=== PATIENT | male | born 1940 | race Caucasian/White ===

== ENCOUNTER → 2017-11-06 | Day surgery (SDC) | payer MEDICARE ==
[~2017-11-06] MED LIST: LIDOCAINE 2% INJ 100 MG/5 ML SDV (FOR ANES.) As Ordered; PROPOFOL 200 MG/20 ML VIAL As Ordered
[2017-11-06] MEDS: NS 1,000 ML IV (10:07)
== END | disposition home or self-care (01) ==
LOC: M OPP 09:18
DX: Z12.11 Encounter for screening for malignant neoplasm of colon (principal); Z86.010 Personal history of colon polyps; Z80.0 Family history of malignant neoplasm of digestive organs; K64.0 First degree hemorrhoids; K57.30 Diverticulosis of large intestine without perforation or abscess without bleeding; Z98.0 Intestinal bypass and anastomosis status; I25.10 Atherosclerotic heart disease of native coronary artery without angina pectoris; Z95.5 Presence of coronary angioplasty implant and graft; Z87.891 Personal history of nicotine dependence; Z88.0 Allergy status to penicillin; Z79.82 Long term (current) use of aspirin; Z79.899 Other long term (current) drug therapy
CPT/HCPCS: G0105

== ENCOUNTER → 2019-07-15 | Outpatient (CLI) | payer MEDICARE ==
[~2019-07-15] MED LIST changes: +ASPI81TA26 PO; +FISH500C PO; +FLAX10008 PO; -LIDOCAINE 2% INJ 100 MG/5 ML SDV (FOR ANES.) As Ordered; +LINZ145C PO; +LIPI1TAB2 OR; +MULTTAB4 PO; +PRED20TA PO; -PROPOFOL 200 MG/20 ML VIAL As Ordered; +VICO5TAB PO; +VITA100067 PO; +VITABCTA OR; +ZOLP5TAB PO; +[UNRECOGNIZED DRUG - CODE] PO
--- NOTE | 2019-07-16 07:33 | REP ---
Two-view chest: 07/15/2019. Indication: Pneumothorax. Comparison: 11/28/2012. Findings: Postoperative sequelae are now noted status post median sternotomy. Slightly ectatic and atherosclerotic thoracic aorta is present. The lungs are clear. There is no pleural effusion or pneumothorax. The cardiac silhouette is not enlarged. Impression: No pneumothorax. New no acute cardiopulmonary process. Electronically Signed by Boubacar Brown DO 07/15/2019 03:27 P
== END ==
LOC: M WUC 15:00
PROVIDERS: ATTEND Physician Assistant
DX: J93.9 Pneumothorax, unspecified (principal)

== ENCOUNTER 2019-11-06 16:44 | Inpatient (IN) | payer MEDICARE ==
[~2019-11-06] VITALS: Ht 167.6 cm; Wt 65.1 kg
[2019-11-06] MEDS ORDERED: METO1TAB32 PO (17:04)
[2019-11-06 17:24] LABS: BASO # 0.1 10^3/uL (0.0-0.2); BASO % 0.9 % (0.0-1.0); EOS # 0.6 10^3/uL (0.0-0.5); EOS % 9.1 % (0.0-3.0); HEMATOCRIT 40.8 % (42.0-52.0); HEMOGLOBIN 13.1 g/dl (13.5-17.5); LYMPH % 30.8 % (24.0-44.0); MEAN CORPUSCULAR HEMOGLOBIN 29.6 pg (27.0-33.0); MEAN CORPUSCULAR HGB CONC 32.1 g/dl (32.0-36.5); MEAN CORPUSCULAR VOLUME 92.1 fl (80.0-96.0); MONO # 0.7 10^3/uL (0.0-0.8); MONO % 11.2 % (0.0-5.0); NEUTROPHILS % 47.7 % (36.0-66.0); PLATELET COUNT, AUTOMATED 284 10^3/uL (150-450); RED BLOOD COUNT 4.43 10^6/uL (4.30-6.10); WHITE BLOOD COUNT 6.4 10^3/uL (4.0-10.0)
--- NOTE | 2019-11-06 17:32 | REPVR ---
PROCEDURE INFORMATION: Exam: CT Head Without Contrast Exam date and time: 11/06/2019 5:12 PM Age: 79 years old Clinical indication: Altered mental status/memory loss TECHNIQUE: Imaging protocol: Computed tomography of the head without contrast. Radiation optimization: All CT scans at this facility use at least one of these dose optimization techniques: automated exposure control; mA and/or kV adjustment per patient size (includes targeted exams where dose is matched to clinical indication); or iterative reconstruction. COMPARISON: No relevant prior studies available. FINDINGS: Brain: There is no acute intracranial hemorrhage, cerebral edema, or midline shift. Minimal chronic microvascular ischemic changes are seen in the periventricular white matter. Age-related cerebral and cerebellar volume loss is present. Ventricles: No hydrocephalus. Bones/joints: No acute fracture. Sinuses: Moderate mucosal thickening is present in the paranasal sinuses. Mastoid air cells: Poor pneumatization of the right mastoid is likely due to remote/chronic inflammation. Orbits: The included orbital structures are unremarkable. Soft tissues: Unremarkable. Vasculature: Atherosclerotic calcifications are seen involving the cavernous carotid arteries. IMPRESSION: 1. No acute intracranial abnormality. 2. Atrophy and chronic deep white matter ischemic change. Electronically signed by: Senthil Oconnor On 11/06/2019 17:31:45 PM
[2019-11-06 17:54] LABS: BLOOD UREA NITROGEN 19 MG/DL (7-18); GLUCOSE, FASTING 92 MG/DL (70-100)
[2019-11-06 17:55] LABS: ALBUMIN 3.6 GM/DL (3.2-5.2); ALT/SGPT 26 U/L (12-78); BILIRUBIN,DIRECT 0.1 MG/DL (0.0-0.2); BILIRUBIN,TOTAL 0.4 MG/DL (0.2-1.0); CALCIUM LEVEL 8.7 MG/DL (8.8-10.2); CARBON DIOXIDE LEVEL 25 MEQ/L (21-32); CHLORIDE LEVEL 106 MEQ/L (98-107); CK-MB VALUE MASS < 1.0 NG/ML (<3.6); CPK CREATINE PHOSPHOKINASE 68 U/L (39-308); CREATININE FOR GFR 1.03 MG/DL (0.70-1.30); ETHYL ALCOHOL (ETHANOL) 0.015 % (0.000-0.010); GLOMERULAR FILTRATION RATE > 60.0 (>35); MB/CK RELATIVE INDEX 1.47 (< OR =4); POTASSIUM SERUM 4.3 MEQ/L (3.5-5.1); SODIUM LEVEL 139 MEQ/L (136-145); TOTAL PROTEIN 6.6 GM/DL (6.4-8.2); TROPONIN I < 0.02 NG/ML (< 0.10)
--- NOTE | 2019-11-06 17:58 | REP ---
HISTORY: Altered mental status. COMPARISON: A two view examination of 07/15/2019, the latest prior. The technique utilized in obtaining the radiograph has magnified the cardiac silhouette and accentuated the interstitial markings. The cardiomediastinal silhouette is unchanged. The cardiac silhouette is magnified by technique. Note is again made of previous median sternotomy. There are basilar fibrotic changes, status quo. There are no acute patchy parenchymal opacities or pleural effusions. There is no change in the osseous structures. IMPRESSION: No acute cardiopulmonary disease. Electronically Signed by Ziggy Granados DO 11/06/2019 06:49 P
[2019-11-06] MEDS ORDERED: VITAD1000T PO (18:47)
[2019-11-06] MEDS ORDERED: ZOLP10TA2 PO (18:47)
[2019-11-06] MEDS ORDERED: VITMTA PO (18:47)
[2019-11-06] MEDS ORDERED: FISH1000 PO (18:47)
[2019-11-06] MEDS ORDERED: HYDR-3363 PO (18:47)
--- NOTE | 2019-11-06 19:18 | HPEPDOC ---
[facility] Medical History & Physical Date of Admission Nov 06, 2019 Date of Service: Nov 06, 2019 Other Provider Navjot STEVENSON Attending Physician: DWIGHT VIEIRA MD History and Physical TIME OF SERVICE 840PM CHIEF COMPLAINT: finger numbness HISTORY OF PRESENT ILLNESS: This is an 79 yr old M who presents w c/o of new onset finger numbness that lasted for about 10 min while he was sitting down to drink a beer. He denies having numbness in any other part of his body, dropping any objects or falling. Passers by reported that he was unresponsive; the patient remembers the event and thinks that it may have lasted for 3-4 mins; thereafter his speech was a bit slurred. His speech has improved but he is not yet back to his baseline. He denies having f/c/dizziness or chest pain. He ate breakfast. 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 HOME MEDICATIONS: Please see below. Vital Signs Date Time Temp Pulse Resp B/P (MAP) Pulse Ox O2 Delivery O2 Flow Rate FiO2 11/06/19 16:54 98.0 64 20 181/84 (116) 100 Room Air PHYSICAL EXAMINATION: GENERAL APPEARANCE: well nourished/ well developed / NAD HEENT: NCAT CARDIOVASCULAR: RRR/NMRG LUNGS: CTAB on RA ABDOMEN: soft & NT on palpation MUSCULOSKELETAL: no LE edema NEUROLOGICAL: CN 2-12 grossly intact / verbal response slightly slow but not dysarthric PSYCHIATRIC: A&O LABORATORY DATA: Immature Granulocyte % (Auto) 0.3, Neutrophils (%) (Auto) 47.7, Lymphocytes (%) (Auto) 30.8, Monocytes (%) (Auto) 11.2H, Eosinophils (%) (Auto) 9.1H, Basophils (%) (Auto) 0.9, Neutrophils # (Auto) 3.0, Lymphocytes # (Auto) 2.0, Monocytes # (Auto) 0.7, Eosinophils # (Auto) 0.6H, Basophils # (Auto) 0.1, Nucleated Red Blood Cells % (auto) 0.0, Anion Gap 8, Glomerular Filtration Rate > 60.0, Calcium Level 8.7L, Total Bilirubin 0.4, Direct Bilirubin 0.1, Aspartate Amino Transf (AST/SGOT) 19, Alanine Aminotransferase (ALT/SGPT) 26, Alkaline Phosphatase 71, Total Creatine Kinase 68, Creatine Kinase MB < 1.0, Creatine Kinase MB Relative Index 1.47, Troponin I < 0.02, Total Protein 6.6, Albumin 3.6, Albumin/Globulin Ratio 1.20, Thyroid Stimulating Hormone (TSH) 1.750, Ethyl Alcohol Level 0.015H IMAGING: XRChest "IMPRESSION: No acute cardiopulmonary disease. CT HEAD "IMPRESSION: 1. No acute intracranial abnormality. 2. Atrophy and chronic deep white matter ischemic change. " MICROBIOLOGY: Please see below. ASSESSMENT: is an 79 yr old w a PMH of CAD s/p stents, CABG in Jun 2019 and Dyslipidemia PLAN: 1. Presyncope cause TBD. No evidence of CVA on CT head. - admit to medical floor / telemetry / IVF / orthostats / trend trops 2. Transient Hand Paresthesia cause TBD - f/u MRI brain and carotid US 3. Uncontrolled HTN - start amlodipine 2.5m daily / c/w metoprolol 4. Normocytic anemia - f/u stool occult and iron studies 5. Alcohol intoxication / abuse - CIWA protocol w thiamine, mvi, folic acid, ativan/ fall precautions / seizure precautions 6. CAD s/p stents / CABG in Jun 2019 / Dyslipidemia- resume home metoprolol & ASA & start atorvastatin DVT Px lovenox DISPO: likely home tomorrow LATE ENTRY #Acute CVA Per discussion with the radiologist on-call arrived the brain showed an acute infarct at the goldstein radiata with another infarct medial to this. Plan: he is already on telemetry /fall precautions / keep head of bed elevated to 30 degrees /aspiration precautions/ f/u lipid panel for ACVD risk score & A1C, TSH, f/u Echo / NPO pending swallow evaluation / PT/OT consult / c/w ASA, statin /Neurology consult / we will dc the metoprolol and amlodipine /permissive hypertension for 24 hours with target blood pressure less than 220/120/labetalol 5 mg IV when necessary for blood pressure greater than 220/120 / Post stroke target glycemic range between 140 and 180 /if the CVA is cryptogenic he will need referal to Cardio for an event monitor to r/o paroxysmal A.fib / we will upgrade him to in-patient status Home Medications Scheduled Aspirin (Aspirin EC) 81 Mg Tab, 81 MG PO QHS Cholecalciferol (Vitamin D3) (Vitamin D3) 1,000 Unit Tablet, 1,000 UNITS PO DAILY Metoprolol Succinate (Metoprolol Succinate) 25 Mg Tab.er.24h, 25 MG PO DAILY Multivitamins (Thera M Plus Tablet) 1 Each Tablet, 1 TAB PO DAILY Camak-3 Fatty Acids/Fish Oil (Fish Oil 1,000 mg Capsule) 1 Each Capsule, 1,000 MG PO DAILY Scheduled PRN Hydroxyzine HCl (Hydroxyzine HCl) 25 Mg Tablet, 25 MG PO TID PRN for ITCHING Linaclotide (Linzess) 145 Mcg Cap, 145 MCG PO DAILY PRN for CONSTIPATION Zolpidem Tartrate (Zolpidem Tartrate) 10 Mg Tablet, 10 MG PO QHS PRN for SLEEP Allergies Coded Allergies: Animal Dander (Verified Allergy, Unknown, 10/30/17) Penicillins (Verified Allergy, Unknown, 11/06/19) A-FIB/CHADSVASC A-FIB History Current/History of A-Fib/PAF?: No Current PO Anticoag Therapy: No DWIGHT VIEIRA MD Nov 06, 2019 19:18
[2019-11-06] MEDS ORDERED: MOM 30ML SUSPENSION UDC PO PRN (19:45)
[2019-11-06] MEDS ORDERED: MAALOX 30 ML SUSP *UDC PO PRN (19:45)
[2019-11-06] MEDS ORDERED: ONDANSETRON 4 MG TAB (S0181) PO PRN (19:45)
[2019-11-06] MEDS ORDERED: LORazepam 2 MG TAB PO PRN (19:45)
[2019-11-06] MEDS ORDERED: ACETAMINOPHEN TAB 650MG DOSE (2X325MG) PO PRN (19:45)
--- NOTE | 2019-11-06 19:46 | ECGEPIP ---
[facility] - ED Test Date: 2019-11-06 Pat Name: RAMY ACOSTA Department: Room: - Gender: Male Systems Engineer: yari : [id number] Requested By: PRUDENCIO LEWIS Order Number: [id number] Reading MD: Ethan Andrew Measurements Intervals Stearns Rate: 59 P: 37 VA: 168 QRS: -10 QRSD: 125 T: 23 QT: 432 QTc: 430 Interpretive Statements SINUS BRADYCARDIA MODERATE INTRAVENTRICULAR CONDUCTION DELAY NSTTW ABNORMALITIES NO PRIORS FOR COMPARISON Electronically Signed on 11-06-2019 19:46:03 EDT by Ethan Andrew
[2019-11-06] MEDS ORDERED: NS 1,000 ML IV SCH ×2 (20:00→23:05)
[2019-11-06 20:12] LABS: FERRITIN 52 NG/ML (26-388); IRON (FE) 82 UG/DL (65-175); PERCENT SATURATION 24.3 % (19.7-50.0); TOTAL IRON BINDING CAPACITY 337 UG/DL (250-450)
[2019-11-06] MEDS ORDERED: zolPIDEM TARTRATE 5 MG TAB PO PRN (21:00)
[2019-11-06] MEDS ORDERED: ASPIRIN 81 MG ENTERIC TAB PO SCH (21:00)
--- NOTE | 2019-11-06 21:57 | REPVR ---
PROCEDURE INFORMATION: Exam: US Duplex Bilateral Extracranial Arteries Exam date and time: 11/06/2019 9:29 PM Age: 79 years old Clinical indication: Syncope and collapse; Additional info: Presyncope and hand paresthesia TECHNIQUE: Imaging protocol: Real-time Duplex ultrasound scan of the bilateral carotid and vertebral arteries combining bah scale, color Doppler and spectral waveform analysis. Bilateral exam. COMPARISON: CT Head without contrast 11/06/2019 5:10 PM FINDINGS: Right side: There is moderate atherosclerotic plaque formation right carotid bifurcation. The right ICA/CCA ratio is 0.7 with a peak velocity of the right internal carotid artery of 82 cm/sec. There is no significant stenosis right internal carotid artery and the amount of narrowing would be less than 50%. The right vertebral artery cannot be identified and may be occluded. Left side: There is moderate irregular atherosclerotic plaque formation left carotid bifurcation. The left ICA/CCA ratio is 0.9 with a peak velocity of the left internal carotid artery of 80 cm/sec. There is no significant stenosis of the left internal carotid artery and the amount of narrowing would be less than 50%. The left vertebral artery is antegrade. IMPRESSION: 1. Moderate irregular atherosclerotic plaque formation throughout the right and left carotid bifurcation. No significant stenosis at this time. 2. The right vertebral artery is not identified and could be occluded. REFERENCES: Carotid Stenosis Reference using SRU criteria: Mild: less than 50% stenosis. ICA PSV is less than 125 cm/second and plaque or intimal thickening is visible. Moderate: 50-69% stenosis. ICA PSV is 125 to 230 cm/second and plaque is visible. Severe: 70-94% stenosis. ICA PSV is more than 230 cm/second and visible plaque and lumen narrowing are seen. Near occlusion: 95-99% stenosis. ICA PSV is variable and significant plaque and luminal narrowing are seen. Occluded: 100% stenosis. No flow identified. Electronically signed by: Alfredo Boswell On 11/06/2019 21:56:27 PM
--- NOTE | 2019-11-06 22:40 | REPVR ---
PROCEDURE INFORMATION: Exam: MR Head Without Contrast Exam date and time: 11/06/2019 8:57 PM Age: 79 years old Clinical indication: Weakness, extremity; Bilateral; Additional info: Presyncope and hand paresthesias in 79 yr old w cad/cabg TECHNIQUE: Imaging protocol: MR of the head without contrast. COMPARISON: CT Head without contrast 11/06/2019 5:10 PM FINDINGS: Brain: There is hyperintense signal in the periventricular white matter consistent with chronic microvascular disease. DWI images 18 and 19 demonstrate an infarct extending from the left putamen into the left goldstein radiata and body of the caudate nucleus. This measures 2 cm in length and 0.8 cm in width. This is an acute infarct, confirmed on ADC. Medial to this on image 18 there is a smaller, 8 mm long, acute infarct in the body of the left caudate nucleus. There is no hemorrhage on gradient echo images. There is no extra-axial collection. There is no mass. Ventricles: Normal. No ventriculomegaly. Bones/joints: Unremarkable. Soft tissues: Unremarkable. Sinuses: Moderate mucosal is present within the sinuses. Mastoid air cells: Normal as visualized. No mastoid effusion. Orbits: Unremarkable. Other vasculature: There are no abnormal flow voids. IMPRESSION: 1. There is chronic microvascular disease. 2. There is a 20 by 8 mm acute infarct in the goldstein radiata. Medial to this there is an 8 by 3 mm acute infarct. Electronically signed by: Brian Wadsworth On 11/06/2019 22:40:10 PM
[2019-11-06] MEDS ORDERED: LABETALOL HCL 100 MG/20 ML VIAL IV PRN (23:15)
[2019-11-06 23:45] LABS: HEMOGLOBIN A1c 6.2 %
[2019-11-07] VITALS (8 sets, daily range): BP systolic 136–180; BP diastolic 68–88
[2019-11-07 00:13] LABS: CHOLESTEROL RISK RATIO 2.725 (<5); THYROID STIMULATING HORMONE 1.65 uIU/ML (0.358-3.740)
[2019-11-07] MEDS: THIAMINE 100 MG TAB PO SCH ×3 (00:22→20:49)
[2019-11-07] MEDS: ATORVASTATIN 20 MG TAB PO SCH ×2 (00:22→20:49)
[2019-11-07] MEDS: DOCUSATE SODIUM 100 MG CAP PO SCH ×3 (00:22→20:49)
[2019-11-07 05:24] LABS: HEMATOCRIT 41.1 % (42.0-52.0); HEMOGLOBIN 13.6 g/dl (13.5-17.5); MEAN CORPUSCULAR HEMOGLOBIN 30.2 pg (27.0-33.0); MEAN CORPUSCULAR HGB CONC 33.1 g/dl (32.0-36.5); MEAN CORPUSCULAR VOLUME 91.1 fl (80.0-96.0); PLATELET COUNT, AUTOMATED 277 10^3/uL (150-450); RED BLOOD COUNT 4.51 10^6/uL (4.30-6.10); WHITE BLOOD COUNT 6.6 10^3/uL (4.0-10.0)
[2019-11-07 05:54] LABS: BLOOD UREA NITROGEN 18 MG/DL (7-18); CALCIUM LEVEL 8.4 MG/DL (8.8-10.2); CARBON DIOXIDE LEVEL 26 MEQ/L (21-32); CHLORIDE LEVEL 111 MEQ/L (98-107); CREATININE FOR GFR 0.99 MG/DL (0.70-1.30); GLOMERULAR FILTRATION RATE > 60.0 (>35); GLUCOSE, FASTING 106 MG/DL (70-100); POTASSIUM SERUM 4.1 MEQ/L (3.5-5.1); SODIUM LEVEL 141 MEQ/L (136-145); TROPONIN I < 0.02 NG/ML (< 0.10)
[2019-11-07] MEDS ORDERED: D5W/0.45% SODIUM CHLORIDE 1,000 ML IV SCH (09:00)
[2019-11-07] MEDS ORDERED: LINZESS PO SCH (09:00)
[2019-11-07] MEDS: MULTIVITAMINS/MINERALS THERAP 1 TAB PO SCH (09:00)
[2019-11-07] MEDS: OMEGA-3 1000MG CAPSULE PO SCH (09:00)
[2019-11-07] MEDS: FOLIC ACID 1 MG TAB PO SCH (09:00)
[2019-11-07] MEDS ORDERED: METOPROLOL SUCC *XL* 25MG TAB (TopROL *XL*) PO SCH (09:00)
[2019-11-07] MEDS: ENOXAPARIN 40 MG/0.4 ML SYRINGE (J1650) SC SCH (09:13)
[2019-11-07] MEDS ORDERED: ASPIRIN 81 MG ENTERIC TAB PO ONE (10:00)
--- NOTE | 2019-11-07 11:19 | IPNPDOC ---
Date Seen The patient was seen on 11/07/19. Progress Note SUBJECTIVE: Patient was seen and examined this morning. The patient states that last night he had developed right sided pointer finger numbness extending partially into his hand. This was sudden onset. He denies every having any weakness. It was reported in his HPI that he was observed to be unresponsive at one point before being transported to the ER. Currently he states he has some numbness in his right hand. He also states that he feels like he knows what he wants to say however is having difficulty articulating his speech. He denies any difficulty swallowing. He denies any abdominal pain, nausea, vomiting. He denies any headaches. OBJECTIVE PHYSICAL EXAMINATION: VITAL SIGNS: Please see below. GENERAL: Awake, alert, and oriented. Appears in no acute distress. Lying comfortably in bed. HEENT: Atraumatic, normocephalic. Eyes are nonicteric. Trachea is midline. CARDIOVASCULAR: Normal S1, S2. Regular rate and rhythm. No clicks, rubs, or murmurs RESPIRATORY: Clear vesicular breath sounds bilateral with good respiratory effort. No wheezes, rhonchi, or rales ABDOMINAL: Soft, nondistended. Nontender. No rebound tenderness or guarding. Normoactive bowel sounds throughout EXTREMITIES: No edema. Full and equal pulses in bilateral upper and lower extremities NEUROLOGICAL: CN II-XII grossly intact. Dysarthria. 5/5 muscle strength testing in bilateral upper and lower extremities. Sensation intact. PSYCHOLOGICAL: Mood and affect appear appropriate LABORATORY DATA, IMAGING STUDIES, MICROBIOLOGY: Please see below. Echocardiogram: Pending DVT prophylaxis ordered?: Lovenox ASSESSMENT AND PLAN: Patient is an 79 year old male who presented to the [facility] ER with complaint of sudden onset right hand numbness and dysarthria. At presentation to the ER the patient received an MRI of the head which demonstrated a 20mm x 8 mm acute infarct in the goldstein radiata and a medial 8 x 3 mm infarct PROBLEMS: 1. Acute CVA -Imaging demonstrating a subcortical white matter infarct involving the goldstein radiata. Patient is currently presenting with some right hand numbness and dysarthria. He has received 81mg PO aspirin however he takes this dose at home. Patient will be given additional 263mg of aspirin for a total dose of 325. -Case was discussed with on-call neurologist with recommendations to continue 325mg Aspirin daily and Statin. Consultation is appreciated -Patient will remain on atorvastatin. -Continue with Permissive Hypertension for at least 48 hours per Neurology Recommendations -MRA of brain w/o contrast ordered -MRA carotids ordered -Echocardiogram pending -HbA1C of 6.2 -LDL of 66 -Patient has a history of ASCVD. Unclear why he was not taking a high intensity statin given history of ASCVD. Will continue Atorvastatin -Speech Eval. -PT/OT eval -Patient is currently NPO 2. Coronary Artery Disease -Patient is s/p stenting and CABG in Jun 2019. -Patient was not taking high intensity statin at home. He has been started on Atorvastatin. -Will hold Metoprolol. 3. Alcohol Use -Patient was reportedly drinking at the time of his CVA. Unclear whether the patient has a history of alcohol abuse. Patient is continued on CIWA protocol 4. DVT Prophylaxis -Lovenox DISPOSITION: . VS, I&O, 24H, Fishbone Vital Signs/I&O Vital Signs Date Time Temp Pulse Resp B/P (MAP) Pulse Ox O2 Delivery O2 Flow Rate FiO2 11/07/19 08:00 98.3 62 18 140/68 (92) 97 Room Air I&O- Last 24 Hours up to 6 AM 11/07/19 06:00 Intake Total 360 ml Output Total 425 ml Balance -65 ml Laboratory Data 24H LABS Laboratory Tests 2 11/06/19 17:12: Immature Granulocyte % (Auto) 0.3, Neutrophils (%) (Auto) 47.7, Lymphocytes (%) (Auto) 30.8, Monocytes (%) (Auto) 11.2H, Eosinophils (%) (Auto) 9.1H, Basophils (%) (Auto) 0.9, Neutrophils # (Auto) 3.0, Lymphocytes # (Auto) 2.0, Monocytes # (Auto) 0.7, Eosinophils # (Auto) 0.6H, Basophils # (Auto) 0.1, Nucleated Red Blood Cells % (auto) 0.0, Anion Gap 8, Glomerular Filtration Rate > 60.0, Calcium Level 8.7L, Iron Level 82, Total Iron Binding Capacity 337, Transferrin % Saturation 24.3, Ferritin 52, Total Bilirubin 0.4, Direct Bilirubin 0.1, Aspar fall Amino Transf (AST/SGOT) 19, Alanine Aminotransferase (ALT/SGPT) 26, Alkaline Phosphatase 71, Total Creatine Kinase 68, Creatine Kinase MB < 1.0, Creatine Kinase MB Relative Index 1.47, Troponin I < 0.02, Total Protein 6.6, Albumin 3.6, Albumin/Globulin Ratio 1.20, Thyroid Stimulating Hormone (TSH) 1.750, Ethyl Alcohol Level 0.015H 11/06/19 23:23: Troponin I < 0.02, Thyroid Stimulating Hormone (TSH) 1.650, Estimated Mean Plasma Glucose 131H, Hemoglobin A1c 6.2, Triglycerides Level 110, Total Cholesterol 139, LDL Cholesterol 66, Non-HDL Cholesterol (LDL + VLDL) 88, Total HDL Cholesterol 51, Cholesterol/HDL Ratio 2.725 11/07/19 00:30: Bedside Glucose (Misc Panel) 95 11/07/19 05:06: Nucleated Red Blood Cells % (auto) 0.0, Anion Gap 4L, Glomerular Filtration Rate > 60.0, Calcium Level 8.4L, Troponin I < 0.02, Magnesium Level 2.0 CBC/BMP Laboratory Tests 11/06/19 17:12 11/07/19 05:06 FRIEDA KHAN DO Nov 07, 2019 11:19
[2019-11-07] MEDS ORDERED: D5W/0.9% SODIUM CHLORIDE 1,000 ML IV SCH (12:15)
[2019-11-07 12:53] LABS: BLOOD UREA NITROGEN 20 MG/DL (7-18); CALCIUM LEVEL 8.3 MG/DL (8.8-10.2); CARBON DIOXIDE LEVEL 27 MEQ/L (21-32); CHLORIDE LEVEL 111 MEQ/L (98-107); GLOMERULAR FILTRATION RATE > 60.0 (>35); GLUCOSE, FASTING 122 MG/DL (70-100); POTASSIUM SERUM 3.9 MEQ/L (3.5-5.1); SODIUM LEVEL 141 MEQ/L (136-145)
[2019-11-07] MEDS: D5W/0.45% SODIUM CHLORIDE 1,000 ML IV SCH ×2 (13:23→20:15)
[2019-11-07] MEDS ORDERED: PROHANCE 279.3MG/ML 5ML VIAL (A9576) As Ordered ONE (14:25)
[2019-11-07] MEDS ORDERED: PROHANCE 279.3MG/ML 15ML VIAL (A9576) As Ordered ONE (14:26)
--- NOTE | 2019-11-07 14:30 | ECHO ---
DATE OF STUDY: 11/07/2019 HEIGHT: 158 cm WEIGHT: 69 kg REFERRING PHYSICIAN: Dr. Ingrid Patel INDICATION: Acute stroke (cerebral). 2-D MEASUREMENTS: Ventricular septum: 1.07 cm Posterior wall: 1.11 cm Left ventricle diastole: 4.1 cm Left ventricle systole: 3.0 cm Aortic root: 3.2 cm Left atrium: 3.1 cm Inferior vena cava: 1.2 cm DOPPLER MEASUREMENTS: Very mild aortic regurgitation No mitral regurgitation No tricuspid regurgitation No pulmonic regurgitation Aortic valve velocity: 107 cm/sec LVOT velocity: 66.6 cm/sec Mitral E velocity: 50.1 cm/sec Mitral A velocity: 66.8 cm/sec Mitral deceleration time: 299 ms Pulmonary acceleration time: 109 ms MITRAL ANNULAR TISSUE DOPPLER: E prime septal: 5.1 cm/sec E prime lateral: 7.9 cm/sec DESCRIPTION: The rhythm was sinus with appearance of left bundle branch block morphology. No pericardial effusion. This was a moderately technically difficult echocardiogram. This was a 2-D, M-mode, color flow Doppler and pulse wave Doppler examination and included mitral annular tissue Doppler. CONCLUSIONS: 1. Paradoxical septal motion with normal regional LV wall motion and wall thickening elsewhere. Normal left ventricle internal dimensions and wall thickness. Normal overall LV systolic function. LVEF 65% by visual estimate. Grade 1 LV diastolic dysfunction. 2. Mild mitral annular calcification. No mitral regurgitation. 3. Mild aortic valve sclerosis with a 3-cuspid aortic valve. Very mild aortic regurgitation. 4. Moderately technically difficult echocardiogram. 5. Otherwise normal appearing echocardiogram Doppler findings.
--- NOTE | 2019-11-07 15:55 | REPVR ---
PROCEDURE INFORMATION: Exam: MR Angiography Neck Without and With Contrast Exam date and time: 11/07/2019 3:17 PM Age: 79 years old Clinical indication: Condition or disease; Cerebrovascular disease and infarction; Patient HX: Known CVA found on non con mri brain on pacs, symptoms have subsided; Additional info: Subcortical white matter stroke TECHNIQUE: Imaging protocol: Magnetic resonance angiography of the neck without and with intravenous contrast. 3D rendering: MIP and/or 3D reconstructed images were created by the technologist. Contrast material: PROHANCE; Contrast volume: 25 ml; Contrast route: 22G; COMPARISON: MRA BRAIN W/O CONTRAST 11/07/2019 2:36 PM, Carotid duplex ultrasound of the neck 11/05/2028 7:00 p.m. FINDINGS: Limitations: Patient motion. Right common carotid artery: No stenosis. No dissection or occlusion. Right internal carotid artery: No stenosis of the extracranial segment. No dissection or occlusion. Right external carotid artery: No stenosis. No dissection or occlusion of the origin. Right vertebral artery: Minimal flow is detected in the right vertebral artery throughout its course V1 through proximal V3 segments. And the V4 segment appears patent on the 3D/MIP images. Left common carotid artery: No stenosis. No dissection or occlusion. Left internal carotid artery: No stenosis of the extracranial segment. No dissection or occlusion. Left external carotid artery: No stenosis. No dissection or occlusion of the origin. Left vertebral artery: Left vertebral artery is dominant. IMPRESSION: No significant stenosis in the internal carotid arteries although there are contour abnormalities of both carotid bulbs images are limited due to patient motion. There is flow in a small right vertebral artery from its origin through the V4 segment. COMMENTS: Using NASCET method for measuring degree of carotid artery stenosis: Mild is less than 50% stenosis. Moderate is 50-69% stenosis. Severe is 70-94% stenosis. Near occlusion is 95-99% stenosis. Electronically signed by: Gemma Caldera On 11/07/2019 15:54:49 PM
--- NOTE | 2019-11-07 16:01 | REPVR ---
PROCEDURE INFORMATION: Exam: MR Angiogram Head Without Contrast, Arteries Exam date and time: 11/07/2019 3:17 PM Age: 79 years old Clinical indication: Condition or disease; Cerebrovascular disease and infarction; Patient HX: Known CVA found on non con mri brain on pacs, symptoms have subsided; Additional info: Subcortical white matter stroke TECHNIQUE: Imaging protocol: MR angiogram head without contrast. Exam focused on the arteries. 3D rendering: MIP and/or 3D reconstructed images were created by the technologist. COMPARISON: MRI-Brain without Contrast 11/06/2019 9:38 PM FINDINGS: Right internal carotid artery: Intracranial segment is patent with no significant stenosis. No aneurysm. Right anterior cerebral artery: No occlusion or significant stenosis. No aneurysm. Right middle cerebral artery: Minimal flow is detected in the right V4 segment. Right posterior cerebral artery: No occlusion or significant stenosis. No aneurysm. Right vertebral artery: No occlusion or significant stenosis. No aneurysm. Left internal carotid artery: Intracranial segment is patent with no significant stenosis. No aneurysm. Left anterior cerebral artery: No occlusion or significant stenosis. No aneurysm. Left middle cerebral artery: No occlusion or significant stenosis. No aneurysm. Left posterior cerebral artery: No occlusion or significant stenosis. No aneurysm. Left vertebral artery: The basilar artery is primarily constituted from the left vertebral artery. Basilar artery: No occlusion or significant stenosis. No aneurysm. IMPRESSION: No acute arterial occlusions. Minimal flow is seen in the right vertebral artery which may be congenital among other etiologies. Electronically signed by: Gemma Caldera On 11/07/2019 16:01:14 PM
[2019-11-07 19:09] LABS: BLOOD UREA NITROGEN 19 MG/DL (7-18); CALCIUM LEVEL 8.5 MG/DL (8.8-10.2); CARBON DIOXIDE LEVEL 26 MEQ/L (21-32); CHLORIDE LEVEL 109 MEQ/L (98-107); CREATININE FOR GFR 1.01 MG/DL (0.70-1.30); GLOMERULAR FILTRATION RATE > 60.0 (>35); GLUCOSE, FASTING 102 MG/DL (70-100); POTASSIUM SERUM 4.1 MEQ/L (3.5-5.1); SODIUM LEVEL 141 MEQ/L (136-145)
[2019-11-08] VITALS (8 sets, daily range): BP systolic 119–152; BP diastolic 67–81
[2019-11-08 00:58] LABS: BLOOD UREA NITROGEN 18 MG/DL (7-18); CALCIUM LEVEL 8.3 MG/DL (8.8-10.2); CARBON DIOXIDE LEVEL 27 MEQ/L (21-32); CHLORIDE LEVEL 110 MEQ/L (98-107); CREATININE FOR GFR 0.98 MG/DL (0.70-1.30); GLOMERULAR FILTRATION RATE > 60.0 (>35); GLUCOSE, FASTING 108 MG/DL (70-100); POTASSIUM SERUM 4.1 MEQ/L (3.5-5.1); SODIUM LEVEL 140 MEQ/L (136-145)
[2019-11-08 06:47] LABS: BLOOD UREA NITROGEN 16 MG/DL (7-18); CALCIUM LEVEL 8.7 MG/DL (8.8-10.2); CARBON DIOXIDE LEVEL 25 MEQ/L (21-32); CHLORIDE LEVEL 111 MEQ/L (98-107); CREATININE FOR GFR 0.91 MG/DL (0.70-1.30); GLOMERULAR FILTRATION RATE > 60.0 (>35); GLUCOSE, FASTING 102 MG/DL (70-100); POTASSIUM SERUM 3.8 MEQ/L (3.5-5.1); SODIUM LEVEL 139 MEQ/L (136-145)
[2019-11-08] MEDS: D5W/0.45% SODIUM CHLORIDE 1,000 ML IV SCH (08:42)
[2019-11-08] MEDS: ASPIRIN 300 MG SUPP PR SCH (08:42)
[2019-11-08] MEDS: ENOXAPARIN 40 MG/0.4 ML SYRINGE (J1650) SC SCH (08:42)
[2019-11-08] MEDS ORDERED: ASPIRIN ENTERIC 325 MG TAB PO SCH (09:00)
[2019-11-08] MEDS: FOLIC ACID 1 MG TAB PO SCH (09:30)
[2019-11-08] MEDS: MULTIVITAMINS/MINERALS THERAP 1 TAB PO SCH (09:30)
[2019-11-08] MEDS: THIAMINE 100 MG TAB PO SCH ×2 (09:30→20:10)
[2019-11-08] MEDS: DOCUSATE SODIUM 100 MG CAP PO SCH ×2 (09:30→20:10)
[2019-11-08] MEDS: OMEGA-3 1000MG CAPSULE PO SCH (09:30)
[2019-11-08 12:43] LABS: BLOOD UREA NITROGEN 16 MG/DL (7-18); CALCIUM LEVEL 8.7 MG/DL (8.8-10.2); CARBON DIOXIDE LEVEL 26 MEQ/L (21-32); CHLORIDE LEVEL 109 MEQ/L (98-107); GLOMERULAR FILTRATION RATE > 60.0 (>35); GLUCOSE, FASTING 77 MG/DL (70-100); POTASSIUM SERUM 3.6 MEQ/L (3.5-5.1); SODIUM LEVEL 139 MEQ/L (136-145)
[2019-11-08] MEDS ORDERED: MIRALAX *UNIT DOSE* 17GM PACKET PO PRN (15:15)
--- NOTE | 2019-11-08 15:25 | IPNPDOC ---
Text Note Date of Service The patient was seen on 11/08/19. NOTE Subjective: Patient stated that his swallowing markedly improved, he is able to eat and drink w/o shock and cough Objective: VITAL SIGNS: Please see below. GENERAL APPEARANCE: Well-nourished, well-developed, not in apparent distress HEENT: Normocephalic, atraumatic. Mucous members moist and pink CARDIOVASCULAR: Regular rate and rhythm. No murmurs, rubs or gallops. Radial p ulses are intact. There is no lower extremity edema LUNGS: Diminished lung sounds ABDOMEN: Abdomen is soft and nontender. MUSCULOSKELETAL: Range of motion is intact in all 4 extremities NEUROLOGICAL: Left facial droop, 7 cranial nerve deficiency, speech mildly dysarthric, moves 4 limbs Assessment and plan Patient is 79 years old male with past medical history of coronary artery diseases presented to the hospital with left facial droop and dysarthria. Patient was found to have an acute infarct in the left goldstein radiata. Acute CVA Patient was diagnosed with acute infarct in the left goldstein radiata Neurologist team recommended aspirin 325 mg daily, continue statin PT/OT evaluation MRA brain did not show significant abnormalities MRA carotids negative for significant stenosis Await speech evaluation bedside swallowing test was negative for cough and choking. Soft mechanical diet Telemetry showed sinus rhythm Echo showed LVEF 65% by visual estimate. Grade 1 LV diastolic dysfunction. Coronary artery diseases Status post CABG in June 2019 Continue statin, aspirin, metoprolol EtOH abuse [facility] protocol VS,Fishbone, I+O VS, Fishbone, I+O Laboratory Tests 11/07/19 18:13 11/08/19 00:13 11/08/19 05:40 11/08/19 11:48 Vital Signs Date Time Temp Pulse Resp B/P (MAP) Pulse Ox O2 Delivery O2 Flow Rate FiO2 11/08/19 11:57 97.7 82 18 147/81 (103) 93 Room Air I&O- Last 24 Hours up to 6 AM 11/08/19 06:00 Intake Total 1700 ml Output Total 500 ml Balance 1200 ml GRETA NERI DO Nov 08, 2019 15:25
[2019-11-08] MEDS: METOPROLOL TART 12.5 MG PER 1/2 TAB PO SCH (20:09)
[2019-11-08] MEDS: ATORVASTATIN 20 MG TAB PO SCH (20:11)
[2019-11-09] VITALS (7 sets, daily range): BP systolic 124–151; BP diastolic 67–80
[2019-11-09 05:38] LABS: HEMOGLOBIN 13.4 g/dl (13.5-17.5); MEAN CORPUSCULAR HEMOGLOBIN 30.5 pg (27.0-33.0); MEAN CORPUSCULAR HGB CONC 33.5 g/dl (32.0-36.5); MEAN CORPUSCULAR VOLUME 91.1 fl (80.0-96.0); PLATELET COUNT, AUTOMATED 277 10^3/uL (150-450); RED BLOOD COUNT 4.39 10^6/uL (4.30-6.10); WHITE BLOOD COUNT 6.9 10^3/uL (4.0-10.0)
[2019-11-09] MEDS: FOLIC ACID 1 MG TAB PO SCH (08:33)
[2019-11-09] MEDS: OMEGA-3 1000MG CAPSULE PO SCH (08:33)
[2019-11-09] MEDS: DOCUSATE SODIUM 100 MG CAP PO SCH ×2 (08:33→20:41)
[2019-11-09] MEDS: ENOXAPARIN 40 MG/0.4 ML SYRINGE (J1650) SC SCH (08:33)
[2019-11-09] MEDS: METOPROLOL TART 12.5 MG PER 1/2 TAB PO SCH ×2 (08:33→20:41)
[2019-11-09] MEDS: MULTIVITAMINS/MINERALS THERAP 1 TAB PO SCH (08:33)
[2019-11-09] MEDS: THIAMINE 100 MG TAB PO SCH (08:33)
[2019-11-09] MEDS: ASPIRIN 300 MG SUPP PR SCH (08:34)
--- NOTE | 2019-11-09 09:00 | CR ---
DATE OF CONSULTATION: 11/07/2019 HISTORY OF PRESENTING ILLNESS: Dominik Motta is an 79-year-old male with a past medical history significant for alcohol use, history of coronary artery disease status post stents, coronary artery bypass graft (CABG) in June 2019, dyslipidemia. The patient presented with right hand clumsiness. The patient noticed that he was experiencing about 10 minutes of finger numbness. He may have even had an episode of unresponsiveness. The patient's symptoms resolved by the time he came to the emergency department. Later, in the admission, his symptoms worsened with dysarthria. Head CT was initially negative. MRI of the brain revealed acute stroke of the left goldstein radiata into the cardia nucleus. The patient was taking 81 mg aspirin at home and was given 325 mg of aspirin. The patient does have a formal swallow study coming up though he is tolerating mechanical soft foods well. He initially reported that he had tingling, paresthesias of both hands, he states. At present time, he has some residual right leg weakness but states that his arm strength/hand strength has improved. He continues to have dysarthria. He denies any headache, chest pain, shortness breath. 14-point review of systems obtained and is negative except as per history of presenting illness (HPI). PAST MEDICAL HISTORY: 1. Coronary artery disease status post stents. 2. CABG June 2019. 3. Dyslipidemia. 4. Resection of high-grade rectal colon. 5. Dysplasia. 6. Umbilical hernia. SOCIAL HISTORY: The patient denies use of tobacco or illicit drugs. Drinks two beers per day. FAMILY HISTORY: Noncontributory. ALLERGIES: PENICILLIN, ANIMAL DANDER. HOME MEDICATIONS: - aspirin 81 mg - metoprolol succinate 25 mg - multivitamin daily - [place]-3 fish oil 1000 mg daily - cholecalciferol 1000 international units daily - hydroxyzine 25 mg p.r.n. - Linzess p.r.n. constipation - zolpidem 10 mg daily by mouth nightly insomnia LAB WORK: TSH 1.750. Hemoglobin A1c 6.2. Triglycerides 110. Cholesterol 139. LDL 53. HDL 51. Ethyl alcohol on admission 0.015. MRI evidence of 20 x 8 mm left goldstein radiata acute stroke into the left caudate nucleus measuring 8 x 3 mm. PHYSICAL EXAMINATION: Blood pressure is 147/81, pulse rate 82, respiratory rate is 18, temperature is 97.7 degrees Fahrenheit, oxygenation is 92% on room air. The patient is awake, alert, oriented to person, place and time. Speech, language, comprehension, and repetition are intact. Pupils are 2.5 mm round, reactive to light. Extraocular muscles intact are intact in all directions without nystagmus. Sensation V1, V2, V3 is intact to light touch. No facial asymmetry on activation. Speech is dysarthric. There is mild expressive aphasia. Tongue is midline. Palate elevates symmetrically. There does not appear to be any pronator drift. [id number] appears to be intact without any gross ataxia or dysmetria. Strength is 5/5 in the deltoid, biceps, triceps. Handgrip are 5-. Iliopsoas on the right is at 4+, on the left it is a 5. Quadriceps are 5/5, tibialis anterior are 5/5. Sensory is intact to light touch in all four extremities. Gait deferred. ASSESSMENT: 79-year-old male with transient right hand weakness, numbness improved with residual dysarthria and mild expressive aphasia. MRI evidence of left goldstein radiata and coronary nucleus ischemic stroke. PLAN: Agree with increased aspirin to 325 mg daily. Lipid profile was excellent. Recommend reducing Lipitor to 20 mg daily. MR angiogram of the head and carotids did not reveal any high-grade intracranial stenosis. Physical therapy (PT), occupational therapy (OT) evaluation. Echocardiogram does not reveal cardiac source of stroke. No evidence of atrial fibrillation on telemetry, and history obtained from both the patient and the patient's son, Gatito. Recommend outpatient neurology followup in 6-8 weeks.
[2019-11-09] MEDS ORDERED: VARIBAR PUDDING 40% w/v 230ML TUBE As Ordered ONE (09:14)
[2019-11-09] MEDS ORDERED: E-Z-PAQUE 96% w/w SUSP 176GM BTL As Ordered ONE (09:15)
[2019-11-09] MEDS ORDERED: BARIUM SULFATE 700 MG TABLET (E-Z-DISK) As Ordered ONE (09:15)
[2019-11-09] MEDS ORDERED: VARIBAR NECTAR 40% w/v 240ML SUSP BTL As Ordered ONE (09:15)
--- NOTE | 2019-11-09 13:56 | IPNPDOC ---
Date Seen The patient was seen on 11/09/19. Progress Note SUBJECTIVE: Patient was seen and examined this morning. There have been no adverse events reported overnight. Patient currently denies any weakness. He states that he feels his speech has improved. He denies any numbness in his right hand. He states that his strength is at his baseline. OBJECTIVE PHYSICAL EXAMINATION: VITAL SIGNS: Please see below. GENERAL: Awake, alert, and oriented. Appears in no acute distress. Sitting up comfortably on side of bed. HEENT: Atraumatic, normocephalic. Eyes are nonicteric. Trachea is midline. CARDIOVASCULAR: Normal S1, S2. Regular rate and rhythm. No clicks, rubs, or murmurs/ RESPIRATORY: Clear vesicular breath sounds bilaterally with good respiratory effort. No wheezes, rhonchi, or rales ABDOMINAL: Soft, nondistended. Nontender. No rebound tenderness or guarding. Normoactive bowel sounds throughout EXTREMITIES: No edema. Full and equal pulses in bilateral upper and lower extremities NEUROLOGICAL: CN II-XII grossly intact. Patients dysarthria has improved. 5/5 muscle strength testing in bilateral upper and lower extremities. Sensation in tact. PSYCHOLOGICAL: Mood and affect appear appropriate LABORATORY DATA, IMAGING STUDIES, MICROBIOLOGY: Please see below. Echocardiogram: DATE OF STUDY: 11/07/2019 HEIGHT: 158 cm WEIGHT: 69 kg REFERRING PHYSICIAN: Dr. Ingrid Patel INDICATION: Acute stroke (cerebral). 2-D MEASUREMENTS: Ventricular septum: 1.07 cm Posterior wall: 1.11 cm Left ventricle diastole: 4.1 cm Left ventricle systole: 3.0 cm Aortic root: 3.2 cm Left atrium: 3.1 cm Inferior vena cava: 1.2 cm DOPPLER MEASUREMENTS: Very mild aortic regurgitation No mitral regurgitation No tricuspid regurgitation No pulmonic regurgitation Aortic valve velocity: 107 cm/sec LVOT velocity: 66.6 cm/sec Mitral E velocity: 50.1 cm/sec Mitral A velocity: 66.8 cm/sec Mitral deceleration time: 299 ms Pulmonary acceleration time: 109 ms MITRAL ANNULAR TISSUE DOPPLER: E prime septal: 5.1 cm/sec E prime lateral: 7.9 cm/sec DESCRIPTION: The rhythm was sinus with appearance of left bundle branch block morphology. No pericardial effusion. This was a moderately technically difficult echocardiogram. This was a 2-D, M-mode, color flow Doppler and pulse wave Doppler examination and included mitral annular tissue Doppler. CONCLUSIONS: 1. Paradoxical septal motion with normal regional LV wall motion and wall thickening elsewhere. Normal left ventricle internal dimensions and wall thickness. Normal overall LV systolic function. LVEF 65% by visual estimate. Grade 1 LV diastolic dysfunction. 2. Mild mitral annular calcification. No mitral regurgitation. 3. Mild aortic valve sclerosis with a 3-cuspid aortic valve. Very mild aortic regurgitation. 4. Moderately technically difficult echocardiogram. 5. Otherwise normal appearing echocardiogram Doppler findings. DVT prophylaxis ordered?: Lovenox ASSESSMENT AND PLAN: Patient is an 79 year old male who presented to the [facility] ER with complaint of sudden onset right hand numbness and dysarthria. At presentation to the ER the patient received an MRI of the head which demonstrated a 20mm x 8 mm acute infarct in the goldstein radiata and a medial 8 x 3 mm infarct PROBLEMS: 1. Acute CVA -Imaging demonstrating a subcortical white matter infarct involving the goldstein radiata. Patient is currently presenting with some right hand numbness and dysarthria. -MRA of brain w/o contrast and MRA of Carotids negative. -Echocardiogram resulted with no acute findings -Telemetry has remained negative for arrhythmia -HbA1C of 6.2 -LDL of 66 -Patient has been seen and evaluated by Neurology with recommendations to continue Aspirin 325mg PO daily. Will continue Lipitor at reduced dose of 20 mg daily per Neurology. -Speech and swallow have evaluated patient with recommendations for pureed solids and nectar thickened liquid with no straw. OOB for all meals. -Cookie Swallow ordered to further assess patient dysphagia -Aspiration precautions as patient continues to cough. Post swallow cough recommended per speech and swallow. -PT/OT eval -Patient has a cryptogenic stoke. Work-up has been negative for etiology of stroke. He has a history of ASCVD. Patient may warrant 30 day Holter monitor for possible paroxysmal atrial fibrillation. However currently telemetry monitoring has been negative 2. Coronary Artery Disease -Patient is s/p stenting and CABG in Jun 2019. -Patient currently taking 20 mg Atorvastatin -Will hold Metoprolol. 3. Alcohol Use -Patient was reportedly drinking at the time of his CVA. Unclear whether the patient has a history of alcohol abuse. Patient is continued on CIWA protocol 4. DVT Prophylaxis -Lovenox DISPOSITION: Patient is working with PT/OT. Will likely need rehab. Discharge in 24-48 hours [place], have independently examined this patient and performed my o wn physical exam, as well as reviewed the documentation. I have discussed in detail with the resident / student the findings and plan of treatment as documented by the resident / student. I agree with their findings and treatment plan. I will continue to follow the patient during this hospital stay. VS, I&O, 24H, Fishbone Vital Signs/I&O Vital Signs Date Time Temp Pulse Resp B/P (MAP) Pulse Ox O2 Delivery O2 Flow Rate FiO2 11/09/19 12:00 98.2 58 17 140/76 (97) 99 Room Air I&O- Last 24 Hours up to 6 AM 11/09/19 05:59 Intake Total 1800 ml Output Total 2140 ml Balance -340 ml Laboratory Data 24H LABS Laboratory Tests 2 11/09/19 05:07: Nucleated Red Blood Cells % (auto) 0.0 CBC/BMP Laboratory Tests 11/09/19 05:07 FRIEDA KHAN DO Nov 09, 2019 13:56 CARRINGTON NERI DO Nov 09, 2019 14:24
--- NOTE | 2019-11-09 15:31 | REP ---
MODIFIED BARIUM SWALLOW: 429 VIEWS. Stroke, rule out aspiration. 1.5 minutes of fluoroscopy time was utilized. PROCEDURE: Lateral fluoroscopy was performed in conjunction with the swallowing therapist. The patient given varying viscosities and textures of barium labeled material. FINDINGS: There was intermittent failure of epiglottic inversion. Laryngeal elevation was observed but the epiglottis only inverted with larger volume oral bolus. Flash laryngeal penetration was observed several times, but this was quite minimal especially considering failure of epiglottic inversion. No tracheal aspiration was observed. There are degenerative disc changes in the cervical spine. IMPRESSION: Laryngeal penetration without and tracheal aspiration. Intermittent failure of epiglottic inversion. Electronically Signed by James Mary MD 11/09/2019 04:23 P
[2019-11-09] MEDS ORDERED: ATORVASTATIN 20 MG TAB PO SCH (21:00)
[2019-11-10 04:00] VITALS: BP 138/74
[2019-11-10 07:49] VITALS: BP 138/62
[2019-11-10] MEDS: METOPROLOL TART 12.5 MG PER 1/2 TAB PO SCH (07:49)
[2019-11-10] MEDS: OMEGA-3 1000MG CAPSULE PO SCH (07:49)
[2019-11-10] MEDS: MULTIVITAMINS/MINERALS THERAP 1 TAB PO SCH (07:49)
[2019-11-10] MEDS: DOCUSATE SODIUM 100 MG CAP PO SCH (07:49)
[2019-11-10] MEDS: FOLIC ACID 1 MG TAB PO SCH (07:49)
[2019-11-10] MEDS: ENOXAPARIN 40 MG/0.4 ML SYRINGE (J1650) SC SCH (07:50)
[2019-11-10] MEDS: ASPIRIN 300 MG SUPP PR SCH (07:50)
[2019-11-10 08:00] VITALS: BP 138/62
[2019-11-10] MEDS ORDERED: POTASSIUM CHLORIDE 10 MEQ SR TABLET PO ONE (08:00)
[2019-11-10] MEDS ORDERED: ASPI-1 PO (10:09)
[2019-11-10] MEDS ORDERED: ATOR1TAB21 PO (10:09)
--- NOTE | 2019-11-10 15:48 | DS.PDOC ---
Discharge Summary General Date of Admission Nov 06, 2019 at 23:17 Date of Discharge 11/10/2019 Attending Physician: GRETA NERI DO Discharge Summary PROCEDURES PERFORMED DURING STAY: [None]. ADMITTING DIAGNOSES: 1. Acute Cerebral Vascular Accident DISCHARGE DIAGNOSES: 1. Acute Cerebral Vascular Accident COMPLICATIONS/CHIEF COMPLAINT: Syncope. HISTORY OF PRESENT ILLNESS: Patient is an 79 year old male that presented to the [facility] ER after developing sudden onset right pointer finger numbness and dysarthria. Patient was reportedly at a bar and was witnessed by bystanders who had stated that patient became unresponsive at one point. The patient was found to be hypertensive in the ER. The patient was noted to have dysarthria but no weakness. He had received a CT scan of the head which was negative. An MRI was performed which demonstrated a 20 x 8 mm acute infarct in the goldstein radiata medial to this was an 8 x 3 mm acute infarct. The patient was continued on aspirin. Patient was admitted to the medical floor for further evaluation and management HOSPITAL COURSE: During the patients hospital stay he was noticed to have some mild dysphagia. The patient was evaluated by speech and swallow with recommendations for pureed solid and nectar thickened liquids. The patient r eceived additional imaging including MRA of the Brain and MRA of the carotids. The patients imaging studies were unrevealing. He was continued on telemetry with no cardiac events. The patients stroke remained largely cryptogenic. The patient was evaluated by Neurology with recommendations for full dose 325mg aspirin and 20mg Lipitor. The patient passed PT with recommendations for OT outpatient. DISCHARGE MEDICATIONS: Please see below. ALLERGIES: Please see below. PHYSICAL EXAMINATION ON DISCHARGE: VITAL SIGNS: Please see below. GENERAL: Awake, alert, and oriented. Appears in no acute distress. Sitting up comfortably in bed HEENT: Atraumatic, normocephalic. Eyes are nonicteric. Trachea is midline. mild right facial droop NECK: No palpable cervical, axillary, or supraclavicular lymphadenopathy CARDIOVASCULAR EXAMINATION: Normal S1, S2. Regular rate and rhythm. No clicks rubs or murmurs. RESPIRATORY EXAMINATION: Clear vesicular breath sounds bilaterally with good respiratory effort ABDOMINAL EXAMINATION: Soft, nondistended. Nontender. No rebound tenderness or guarding. Normoactive bowel sounds throughout EXTREMITIES: No edema. Full and equal pulses in bilateral upper and lower extremities SKIN: No rashes or lesions NEUROLOGICAL EXAMINATION: CN II-XII grossly intact. No apparent dysarthria. 5/5 muscle strength testing in bilateral upper and lower extremities PSYCHIATRIC EXAMINATION: Mood and affect appear appropriate LABORATORY DATA: Please see below. IMAGING: PROCEDURE INFORMATION: Exam: CT Head Without Contrast Exam date and time: 11/06/2019 5:12 PM Age: 79 years old Clinical indication: Altered mental status/memory loss TECHNIQUE: Imaging protocol: Computed tomography of the head without contrast. Radiation optimization: All CT scans at this facility use at least one of these dose optimization techniques: automated exposure control; mA and/or kV adjustment per patient size (includes targeted exams where dose is matched to clinical indication); or iterative reconstruction. COMPARISON: No relevant prior studies available. FINDINGS: Brain: There is no acute intracranial hemorrhage, cerebral edema, or midline shift. Minimal chronic microvascular ischemic changes are seen in the periventricular white matter. Age-related cerebral and cerebellar volume loss is present. Ventricles: No hydrocephalus. Bones/joints: No acute fracture. Sinuses: Moderate mucosal thickening is present in the paranasal sinuses. Mastoid air cells: Poor pneumatization of the right mastoid is likely due to remote/chronic inflammation. Orbits: The included orbital structures are unremarkable. Soft tissues: Unremarkable. Vasculature: Atherosclerotic calcifications are seen involving the cavernous carotid arteries. IMPRESSION: 1. No acute intracranial abnormality. 2. Atrophy and chronic deep white matter ischemic change. Electronically signed by: Senthil Oconnor On 11/06/2019 17:31:45 PM HISTORY: Altered mental status. COMPARISON: A two view examination of 07/15/2019, the latest prior. The technique utilized in obtaining the radiograph has magnified the cardiac silhouette and accentuated the interstitial markings. The cardiomediastinal silhouette is unchanged. The cardiac silhouette is magnified by technique. Note is again made of previous median sternotomy. There are basilar fibrotic changes, status quo. There are no acute patchy parenchymal opacities or pleural effusions. There is no change in the osseous structures. IMPRESSION: No acute cardiopulmonary disease. Electronically Signed by Ziggy Granados DO 11/06/2019 06:49 P PROCEDURE INFORMATION: Exam: US Duplex Bilateral Extracranial Arteries Exam date and time: 11/06/2019 9:29 PM Age: 79 years old Clinical indication: Syncope and collapse; Additional info: Presyncope and hand paresthesia TECHNIQUE: Imaging protocol: Real-time Duplex ultrasound scan of the bilateral carotid and vertebral arteries combining bah scale, color Doppler and spectral waveform analysis. Bilateral exam. COMPARISON: CT Head without contrast 11/06/2019 5:10 PM FINDINGS: Right side: There is moderate atherosclerotic plaque formation right carotid bifurcation. The right ICA/CCA ratio is 0.7 with a peak velocity of the right internal carotid artery of 82 cm/sec. There is no significant stenosis right internal carotid artery and the amount of narrowing would be less than 50%. The right vertebral artery cannot be identified and may be occluded. Left side: There is moderate irregular atherosclerotic plaque formation left carotid bifurcation. The left ICA/CCA ratio is 0.9 with a peak velocity of the left internal carotid artery of 80 cm/sec. There is no significant stenosis of the left internal carotid artery and the amount of narrowing would be less than 50%. The left vertebral artery is antegrade. IMPRESSION: 1. Moderate irregular atherosclerotic plaque formation throughout the right and left carotid bifurcation. No significant stenosis at this time. 2. The right vertebral artery is not identified and could be occluded. REFERENCES: Carotid Stenosis Reference using SRU criteria: Mild: less than 50% stenosis. ICA PSV is less than 125 cm/second and plaque or intimal thickening is visible. Moderate: 50-69% stenosis. ICA PSV is 125 to 230 cm/second and plaque is visible. Severe: 70-94% stenosis. ICA PSV is more than 230 cm/second and visible plaque and lumen narrowing are seen. Near occlusion: 95-99% stenosis. ICA PSV is variable and significant plaque and luminal narrowing are seen. Occluded: 100% stenosis. No flow identified. Electronically signed by: Alfredo Boswell On 11/06/2019 21:56:27 PM THIS REPORT CONTAINS FINDINGS THAT MAY BE CRITICAL TO PATIENT CARE. The findings were verbally communicated via telephone conference with DWIGHT VIEIRA at 10:53 PM EDT on 11/06/2019. The findings were acknowledged and understood. Electronically signed by: Brian Galo On 11/06/2019 22:54:02 PM DD: BRIAN GALO MD 11/06/192056 DT: NANCY 11/06/192253 DS: JUAN MANUEL 11/06/192253 PROCEDURE INFORMATION: Exam: MR Head Without Contrast Exam date and time: 11/06/2019 8:57 PM Age: 79 years old Clinical indication: Weakness, extremity; Bilateral; Additional info: Presyncope and hand paresthesias in 79 yr old w cad/cabg TECHNIQUE: Imaging protocol: MR of the head without contrast. COMPARISON: CT Head without contrast 11/06/2019 5:10 PM FINDINGS: Brain: There is hyperintense signal in the periventricular white matter consistent with chronic microvascular disease. DWI images 18 and 19 demonstrate an infarct extending from the left putamen into the left goldstein radiata and body of the caudate nucleus. This measures 2 cm in length and 0.8 cm in width. This is an acute infarct, confirmed on ADC. Medial to this on image 18 there is a smaller, 8 mm long, acute infarct in the body of the left caudate nucleus. There is no hemorrhage on gradient echo images. There is no extra-axial collection. There is no mass. Ventricles: Normal. No ventriculomegaly. Bones/joints: Unremarkable. Soft tissues: Unremarkable. Sinuses: Moderate mucosal is present within the sinuses. Mastoid air cells: Normal as visualized. No mastoid effusion. Orbits: Unremarkable. Other vasculature: There are no abnormal flow voids. IMPRESSION: 1. There is chronic microvascular disease. 2. There is a 20 by 8 mm acute infarct in the goldstein radiata. Medial to this there is an 8 by 3 mm acute infarct. Electronically signed by: Brian Galo On 11/06/2019 22:40:10 PM DD: BRIAN GALO MD 11/06/192056 DT: NANCY 11/06/192239 DS: JUAN MANUEL 11/06/192239 PROCEDURE INFORMATION: Exam: MR Angiography Neck Without and With Contrast Exam date and time: 11/07/2019 3:17 PM Age: 79 years old Clinical indication: Condition or disease; Cerebrovascular disease and infarction; Patient HX: Known CVA found on non con mri brain on pacs, symptoms have subsided; Additional info: Subcortical white matter stroke TECHNIQUE: Imaging protocol: Magnetic resonance angiography of the neck without and with intravenous contrast. 3D rendering: MIP and/or 3D reconstructed images were created by the technologist. Contrast material: PROHANCE; Contrast volume: 25 ml; Contrast route: 22G; COMPARISON: MRA BRAIN W/O CONTRAST 11/07/2019 2:36 PM, Carotid duplex ultrasound of the neck 11/05/2028 7:00 p.m. FINDINGS: Limitations: Patient motion. Right common carotid artery: No stenosis. No dissection or occlusion. Right internal carotid artery: No stenosis of the extracranial segment. No dissection or occlusion. Right external carotid artery: No stenosis. No dissection or occlusion of the origin. Right vertebral artery: Minimal flow is detected in the right vertebral artery throughout its course V1 through proximal V3 segments. And the V4 segment appears patent on the 3D/MIP images. Left common carotid artery: No stenosis. No dissection or occlusion. Left internal carotid artery: No stenosis of the extracranial segment. No dissection or occlusion. Left external carotid artery: No stenosis. No dissection or occlusion of the origin. Left vertebral artery: Left vertebral artery is dominant. IMPRESSION: No significant stenosis in the internal carotid arteries although there are contour abnormalities of both carotid bulbs images are limited due to patient motion. There is flow in a small right vertebral artery from its origin through the V4 segment. COMMENTS: Using NASCET method for measuring degree of carotid artery stenosis: Mild is less than 50% stenosis. Moderate is 50-69% stenosis. Severe is 70-94% stenosis. Near occlusion is 95-99% stenosis. Electronically signed by: Lauri Caldera On 11/07/2019 15:54:49 PM DD: LAURI CALDERA MD 11/07/19 1517 DT: NANCY 11/07/19 1554 DS: SONAL 11/07/19 1554 PROCEDURE INFORMATION: Exam: MR Angiogram Head Without Contrast, Arteries Exam date and time: 11/07/2019 3:17 PM Age: 79 years old Clinical indication: Condition or disease; Cerebrovascular disease and infarction; Patient HX: Known CVA found on non con mri brain on pacs, symptoms have subsided; Additional info: Subcortical white matter stroke TECHNIQUE: Imaging protocol: MR angiogram head without contrast. Exam focused on the arteries. 3D rendering: MIP and/or 3D reconstructed images were created by the technologist. COMPARISON: MRI-Brain without Contrast 11/06/2019 9:38 PM FINDINGS: Right internal carotid artery: Intracranial segment is patent with no significant stenosis. No aneurysm. Right anterior cerebral artery: No occlusion or significant stenosis. No aneurysm. Right middle cerebral artery: Minimal flow is detected in the right V4 segment. Right posterior cerebral artery: No occlusion or significant stenosis. No aneurysm. Right vertebral artery: No occlusion or significant stenosis. No aneurysm. Left internal carotid artery: Intracranial segment is patent with no significant stenosis. No aneurysm. Left anterior cerebral artery: No occlusion or significant stenosis. No aneurysm. Left middle cerebral artery: No occlusion or significant stenosis. No aneurysm. Left posterior cerebral artery: No occlusion or significant stenosis. No aneurysm. Left vertebral artery: The basilar artery is primarily constituted from the left vertebral artery. Basilar artery: No occlusion or significant stenosis. No aneurysm. IMPRESSION: No acute arterial occlusions. Minimal flow is seen in the right vertebral artery which may be congenital among other etiologies. Electronically signed by: Lauri Caldera On 11/07/2019 16:01:14 PM DD: LAURI CALDERA MD 11/07/19 1517 DT: NANCY 11/07/19 1601 DS: SONAL 11/07/19 1601 MODIFIED BARIUM SWALLOW: 429 VIEWS. Stroke, rule out aspiration. 1.5 minutes of fluoroscopy time was utilized. PROCEDURE: Lateral fluoroscopy was performed in conjunction with the swallowing therapist. The patient given varying viscosities and textures of barium labeled material. FINDINGS: There was intermittent failure of epiglottic inversion. Laryngeal elevation was observed but the epiglottis only inverted with larger volume oral bolus. Flash laryngeal penetration was observed several times, but this was quite minimal especially considering failure of epiglottic inversion. No tracheal aspiration was observed. There are degenerative disc changes in the cervical spine. IMPRESSION: Laryngeal penetration without and tracheal aspiration. Intermittent failure of epiglottic inversion. Electronically Signed by James Mary MD 11/09/2019 04:23 P DD: James Mary MD 11/09/19 1513 DT: GERMAIN 11/09/19 1529 DS: STERLING 11/09/19 1623 11/09/19 1623 PROGNOSIS: Fair ACTIVITY: [As tolerated]. DIET: Pureed Solids and nectar thickened liquids DISCHARGE PLAN: Patient is to be discharged home. He is to continue Aspirin 325 mg daily. He is to continue Lipitor 20mg every night. He is to follow-up with his PCP in 7-10 days. There is no definitive cause of the patients stroke and it is therefore considered cryptogenic. Patient will be referred to Cardiology for 30 day event monitoring to assess for possible paroxysmal atrial fibrillation. Patient will follow-up with Neurology in 6-8 weeks. He will see Occupational Therapy outpatient. DISPOSITION: 01 Home, Self-Care. DISCHARGE CONDITION: [Stable]. TIME SPENT ON DISCHARGE: Greater than 40 minutes. I, Greta Neri, have independently examined this patient and performed my own physical exam, as well as reviewed the documentation. I have discussed in detail with the resident / student the findings and plan of treatment as documented by the resident / student. I agree with their findings and treatment plan. Vital Signs/I&Os Vital Signs Date Time Temp Pulse Resp B/P (MAP) Pulse Ox O2 Delivery O2 Flow Rate FiO2 11/10/19 08:00 97.7 70 18 138/62 (87) 98 Room Air I&O- Last 24 Hours up to 6 AM 11/10/19 06:00 Intake Total 540 ml Output Total 200 ml Balance 340 ml Discharge Medications Scheduled Aspirin (Aspirin) 325 Mg Tablet, 325 MG PO DAILY for STROKE Take ONE 325mg Tablet ONCE daily Atorvastatin Calcium (Atorvastatin Calcium) 20 Mg Tablet, 20 MG PO QHS for ASCVD Take ONE 20mg Tablet before bed Cholecalciferol (Vitamin D3) (Vitamin D3) 1,000 Unit Tablet, 1,000 UNITS PO DAILY, (Reported) Metoprolol Succinate (Metoprolol Succinate) 25 Mg Tab.er.24h, 25 MG PO DAILY, (Reported) Multivitamins (Thera M Plus Tablet) 1 Each Tablet, 1 TAB PO DAILY, (Reported) [place]-3 Fatty Acids/Fish Oil (Fish Oil 1,000 mg Capsule) 1 Each Capsule, 1,000 MG PO DAILY, (Reported) Scheduled PRN Hydroxyzine HCl (Hydroxyzine HCl) 25 Mg Tablet, 25 MG PO TID PRN for ITCHING, (Reported) Linaclotide (Linzess) 145 Mcg Cap, 145 MCG PO DAILY PRN for CONSTIPATION, (Reported) Zolpidem Tartrate (Zolpidem Tartrate) 10 Mg Tablet, 10 MG PO QHS PRN for SLEEP, (Reported) Allergies Coded Allergies: Animal Dander (Verified Allergy, Unknown, 10/30/17) Penicillins (Verified Allergy, Unknown, 11/06/19) FRIEDA KHAN DO Nov 10, 2019 15:48 GRETA NERI DO Nov 12, 2019 14:49
[2019-11-11] MEDS ORDERED: ASPIRIN 325 MG TAB PO SCH (09:00)
== END 2019-11-10 11:50 | disposition home or self-care (01) | DRG 66 ==
LOC: M ED 16:44 → INTOOBSV 19:44 → M ED INP 19:44 → ENRESERVTM 22:17 → ENRESERVDT 22:17 → OBSVTOIN 23:17 → M PCU 23:36
PROVIDERS: ADMIT Internal Medicine; ATTEND Internal Medicine
DX: I63.89 Other cerebral infarction (principal); R20.2 Paresthesia of skin; I25.10 Atherosclerotic heart disease of native coronary artery without angina pectoris; E78.5 Hyperlipidemia, unspecified; R55 Syncope and collapse; I10 Essential (primary) hypertension; D64.9 Anemia, unspecified; F10.120 Alcohol abuse with intoxication, uncomplicated; Z95.5 Presence of coronary angioplasty implant and graft; Z95.1 Presence of aortocoronary bypass graft; Z79.82 Long term (current) use of aspirin; Z79.899 Other long term (current) drug therapy; Z88.0 Allergy status to penicillin; J30.81 Allergic rhinitis due to animal (cat) (dog) hair and dander; I69.322 Dysarthria following cerebral infarction; I69.392 Facial weakness following cerebral infarction

== ENCOUNTER 2020-01-12 12:23 | Emergency (ER) | payer MEDICARE ==
[~2020-01-12] VITALS: Ht 167.6 cm; Wt 68.2 kg
[~2020-01-12 12:23] MED LIST changes: +ASPI-1 PO; +ATOR1TAB21 PO; +FISH1000 PO; +HYDR-3363 PO; +METO1TAB32 PO; +VITAD1000T PO; +VITMTA PO; +ZOLP10TA2 PO
[2020-01-12] MEDS ORDERED: ELIQ5TAB (12:33)
[2020-01-12 13:13] LABS: BASO # 0.1 10^3/uL (0.0-0.2); EOS # 0.4 10^3/uL (0.0-0.5); EOS % 7.6 % (0.0-3.0); HEMATOCRIT 38.8 % (42.0-52.0); HEMOGLOBIN 12.6 g/dl (13.5-17.5); LYMPH # 1.6 10^3/uL (1.5-5.0); LYMPH % 31.1 % (24.0-44.0); MEAN CORPUSCULAR HEMOGLOBIN 30.4 pg (27.0-33.0); MEAN CORPUSCULAR HGB CONC 32.5 g/dl (32.0-36.5); MEAN CORPUSCULAR VOLUME 93.7 fl (80.0-96.0); MONO # 0.7 10^3/uL (0.0-0.8); MONO % 13.1 % (0.0-5.0); NEUTROPHILS # 2.4 10^3/uL (1.5-8.5); PLATELET COUNT, AUTOMATED 271 10^3/uL (150-450); RED BLOOD COUNT 4.14 10^6/uL (4.30-6.10); WHITE BLOOD COUNT 5.1 10^3/uL (4.0-10.0)
[2020-01-12 13:28] LABS: INR 1.03; PROTHROMBIN TIME 13.2 SECONDS (11.8-14.0)
[2020-01-12 13:29] LABS: PARTIAL THROMBOPLASTIN TIME 34.3 SECONDS (25.0-38.4)
[2020-01-12 13:45] LABS: ALBUMIN 3.6 GM/DL (3.2-5.2); ALT/SGPT 31 U/L (12-78); BILIRUBIN,DIRECT 0.2 MG/DL (0.0-0.2); BILIRUBIN,TOTAL 0.8 MG/DL (0.2-1.0); BLOOD UREA NITROGEN 22 MG/DL (7-18); CALCIUM LEVEL 9.2 MG/DL (8.8-10.2); CARBON DIOXIDE LEVEL 28 MEQ/L (21-32); CHLORIDE LEVEL 109 MEQ/L (98-107); CK-MB VALUE MASS < 1.0 NG/ML (<3.6); CPK CREATINE PHOSPHOKINASE 84 U/L (39-308); CREATININE FOR GFR 1.21 MG/DL (0.70-1.30); GLOMERULAR FILTRATION RATE > 60.0 (>35); GLUCOSE, FASTING 99 MG/DL (70-100); MB/CK RELATIVE INDEX 1.19 (< OR =4); POTASSIUM SERUM 4.2 MEQ/L (3.5-5.1); SODIUM LEVEL 143 MEQ/L (136-145); TOTAL PROTEIN 6.5 GM/DL (6.4-8.2); TROPONIN I < 0.02 NG/ML (< 0.10)
--- NOTE | 2020-01-12 13:57 | REP ---
CT BRAIN WITHOUT CONTRAST: HISTORY: CVA. Comparison MRI brain study November 06, 2019. Comparison brain CT study November 06, 2019. CT FINDINGS: Preliminary digital infectious disease physician radiograph is unremarkable. Bone windows settings demonstrate an intact bony calvarium. There is moderate mucosal thickening affecting the ethmoid air cells bilaterally. There is vascular calcification in the distal internal carotid arteries bilaterally. Distal vertebral artery vascular calcification is also noted. There is generalized intracranial volume loss again noted unchanged. There is evidence of old encephalomalacia or atrophy of the inferior cerebellar hemisphere on the right unchanged from prior studies. There is a lacunar infarct in the periventricular white matter of the left frontal lobe corresponding to the distribution of the acute ischemic changes on MRI study November 06, 2019. There is physiologic calcification of the basal ganglia bilaterally. No acute infarction is appreciated. There is no evidence of intracranial hemorrhage, mass, extra-axial fluid collection, or midline shift. IMPRESSION: Chronic changes with old infarct pattern in the right inferior cerebellum and left periventricular frontal lobe. Vascular calcification and diffuse atrophy. No acute intracranial abnormality seen. Electronically Signed by James Mary MD 01/12/2020 06:47 P
--- NOTE | 2020-01-12 13:58 | REP ---
SINGLE VIEW CHEST X-RAY: HISTORY: CVA. COMPARISON STUDY: November 06, 2019. FINDINGS: The lungs are well inflated and clear. The pleural angles are sharp. Heart is not enlarged. Prior sternotomy wires are again seen. Pulmonary vasculature is not increased. No significant bony abnormality. IMPRESSION: Prior sternotomy wires. No active disease. Electronically Signed by James Mary MD 01/12/2020 06:47 P
[2020-01-12] MEDS ORDERED: NS 1,000 ML IV ONE (14:45)
[2020-01-12 16:15] VITALS: BP 149/69
--- NOTE | 2020-01-13 00:33 | ECGEPIP ---
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
== END 2020-01-12 16:30 | disposition home or self-care (01) ==
LOC: M ED 12:23
DX: E86.0 Dehydration (principal); I25.10 Atherosclerotic heart disease of native coronary artery without angina pectoris; E78.5 Hyperlipidemia, unspecified; Z95.1 Presence of aortocoronary bypass graft; Z95.5 Presence of coronary angioplasty implant and graft; Z79.899 Other long term (current) drug therapy; Z79.01 Long term (current) use of anticoagulants; Z79.82 Long term (current) use of aspirin; Z88.0 Allergy status to penicillin; J30.81 Allergic rhinitis due to animal (cat) (dog) hair and dander

== ENCOUNTER 2021-12-27 14:53 | Inpatient (IN) | payer MEDICARE ==
[~2021-12-27] VITALS: Ht 167.6 cm; Wt 61.9 kg
[~2021-12-27 14:53] MED LIST changes: +ELIQ5TAB PO; +VITA100093 PO; -VITAD1000T PO
[2021-12-27 21:01] VITALS: BP 177/89
[2021-12-27 21:27] LABS: BASO # 0.1 10^3/uL (0.0-0.2); BASO % 0.6 % (0.0-1.0); EOS # 0.2 10^3/uL (0.0-0.5); EOS % 2.3 % (0.0-3.0); HEMATOCRIT 41.3 % (42.0-52.0); HEMOGLOBIN 13.5 g/dl (13.5-17.5); LYMPH # 2.6 10^3/uL (1.5-5.0); LYMPH % 30.4 % (24.0-44.0); MEAN CORPUSCULAR HEMOGLOBIN 30.9 pg (27.0-33.0); MEAN CORPUSCULAR HGB CONC 32.7 g/dl (32.0-36.5); MEAN CORPUSCULAR VOLUME 94.5 fl (80.0-96.0); MONO # 0.7 10^3/uL (0.0-0.8); MONO % 8.2 % (2.0-8.0); NEUTROPHILS # 4.9 10^3/uL (1.5-8.5); NEUTROPHILS % 58.1 % (36.0-66.0); PLATELET COUNT, AUTOMATED 261 10^3/uL (150-450); RED BLOOD COUNT 4.37 10^6/uL (4.30-6.10); WHITE BLOOD COUNT 8.4 10^3/uL (4.0-10.0)
[2021-12-27 22:01] VITALS: BP 144/68
[2021-12-27 22:01] LABS: ALBUMIN 3.5 GM/DL (3.2-5.2); ALT/SGPT 27 U/L (12-78); BILIRUBIN,TOTAL 0.4 MG/DL (0.2-1.0); BLOOD UREA NITROGEN 19 MG/DL (7-18); CALCIUM LEVEL 9.6 MG/DL (8.8-10.2); CARBON DIOXIDE LEVEL 29 MEQ/L (21-32); CHLORIDE LEVEL 110 MEQ/L (98-107); CREATININE FOR GFR 0.81 MG/DL (0.70-1.30); GLOMERULAR FILTRATION RATE > 60.0 (>35); GLUCOSE, FASTING 102 MG/DL (70-100); POTASSIUM SERUM 4.5 MEQ/L (3.5-5.1); SODIUM LEVEL 143 MEQ/L (136-145); TOTAL PROTEIN 6.8 GM/DL (6.4-8.2)
[2021-12-27 23:00] VITALS: BP 109/56
[2021-12-28] VITALS (20 sets, daily range): BP systolic 91–179; BP diastolic 53–109
[2021-12-28 05:10] LABS: HEMATOCRIT 39.2 % (42.0-52.0); HEMOGLOBIN 12.9 g/dl (13.5-17.5); MEAN CORPUSCULAR HEMOGLOBIN 30.6 pg (27.0-33.0); MEAN CORPUSCULAR HGB CONC 32.9 g/dl (32.0-36.5); MEAN CORPUSCULAR VOLUME 92.9 fl (80.0-96.0); PLATELET COUNT, AUTOMATED 252 10^3/uL (150-450); RED BLOOD COUNT 4.22 10^6/uL (4.30-6.10); WHITE BLOOD COUNT 7.7 10^3/uL (4.0-10.0)
[2021-12-28 05:26] LABS: BLOOD UREA NITROGEN 17 MG/DL (7-18); CALCIUM LEVEL 8.9 MG/DL (8.8-10.2); CARBON DIOXIDE LEVEL 26 MEQ/L (21-32); CHLORIDE LEVEL 111 MEQ/L (98-107); CREATININE FOR GFR 0.77 MG/DL (0.70-1.30); GLOMERULAR FILTRATION RATE > 60.0 (>35); GLUCOSE, FASTING 82 MG/DL (70-100); POTASSIUM SERUM 4.8 MEQ/L (3.5-5.1); SODIUM LEVEL 142 MEQ/L (136-145)
[2021-12-28] MEDS ORDERED: VANCOMYCIN HCL 500 MG in D5W MINI-BAG PLUS 100 ML IV ONE (06:00)
[2021-12-28] MEDS ORDERED: D5W/0.45% SODIUM CHLORIDE 1,000 ML IV SCH (06:00)
[2021-12-28] MEDS: LIDOCAINE 5% (LIDODERM) PATCH TD SCH (08:59)
[2021-12-28] MEDS: ATORVASTATIN 20 MG TAB PO SCH (09:00)
[2021-12-28] MEDS ORDERED: LIDOCAINE 1% SDV 30ML VIAL As Ordered ONE (14:10)
[2021-12-28] MEDS ORDERED: VANCOMYCIN 1000MG/20ML VIAL As Ordered ONE (14:56)
[2021-12-28] MEDS ORDERED: propofoL 200 MG/20 ML VIAL As Ordered ONE (15:14)
[2021-12-28] MEDS ORDERED: LIDOCAINE 2% 100MG/5ML SDV (FOR ANES.) As Ordered ONE (15:14)
[2021-12-28] MEDS ORDERED: hydrOXYzine 25 MG TAB PO PRN (16:05)
[2021-12-28] MEDS ORDERED: ONDANSETRON 4MG/2ML VIAL IV PRN (17:20)
[2021-12-28] MEDS ORDERED: fentaNYL 100 MCG/2 ML INJECTION IV PRN (17:20)
[2021-12-28] MEDS ORDERED: PERCOCET 5MG/325MG TAB PO PRN (17:20)
[2021-12-28] MEDS ORDERED: LR 1,000 ML IV SCH (17:20)
[2021-12-28] MEDS ORDERED: ASPI81TA26 PO (17:43)
[2021-12-28] MEDS ORDERED: ATOR1TAB19 PO (17:43)
[2021-12-28] MEDS ORDERED: FAMO20TA PO (17:43)
[2021-12-28] MEDS: ACETAMINOPHEN TAB 650MG DOSE (2X325MG) PO PRN (17:45)
[2021-12-28] MEDS ORDERED: HOME MED LIST COMPLETE! XX SCH (17:45)
[2021-12-28] MEDS: DOCUSATE SODIUM 100MG CAPSULE PO SCH (20:13)
[2021-12-28] MEDS: FAMOTIDINE 20 MG TAB PO SCH (20:13)
[2021-12-28] MEDS ORDERED: zolPIDEM TARTRATE 5 MG TAB PO SCH (21:00)
[2021-12-28] MEDS ORDERED: **NOTE PATIENT COMMENT** MISC XX SCH (21:00)
[2021-12-29] VITALS (8 sets, daily range): BP systolic 90–137; BP diastolic 53–74
[2021-12-29] MEDS ORDERED: VANCOMYCIN HCL 500 MG in D5W MINI-BAG PLUS 100 ML IV ONE (06:00)
[2021-12-29 07:33] LABS: HEMATOCRIT 40.1 % (42.0-52.0); HEMOGLOBIN 13.3 g/dl (13.5-17.5); MEAN CORPUSCULAR HEMOGLOBIN 30.4 pg (27.0-33.0); MEAN CORPUSCULAR HGB CONC 33.2 g/dl (32.0-36.5); MEAN CORPUSCULAR VOLUME 91.6 fl (80.0-96.0); PLATELET COUNT, AUTOMATED 245 10^3/uL (150-450); RED BLOOD COUNT 4.38 10^6/uL (4.30-6.10); WHITE BLOOD COUNT 8.6 10^3/uL (4.0-10.0)
[2021-12-29 07:58] LABS: BLOOD UREA NITROGEN 21 MG/DL (7-18); CALCIUM LEVEL 8.8 MG/DL (8.8-10.2); CARBON DIOXIDE LEVEL 24 MEQ/L (21-32); CHLORIDE LEVEL 111 MEQ/L (98-107); CREATININE FOR GFR 0.76 MG/DL (0.70-1.30); GLOMERULAR FILTRATION RATE > 60.0 (>35); GLUCOSE, FASTING 99 MG/DL (70-100); POTASSIUM SERUM 3.8 MEQ/L (3.5-5.1); SODIUM LEVEL 143 MEQ/L (136-145)
[2021-12-29] MEDS ORDERED: METOPROLOL SUCC *XL* 25MG TAB (TopROL *XL*) PO SCH (09:00)
[2021-12-29] MEDS: LIDOCAINE 5% (LIDODERM) PATCH TD SCH (09:41)
[2021-12-29] MEDS: DOCUSATE SODIUM 100MG CAPSULE PO SCH (09:42)
[2021-12-29] MEDS: ATORVASTATIN 20 MG TAB PO SCH (09:42)
[2021-12-29] MEDS: FAMOTIDINE 20 MG TAB PO SCH (09:42)
[2021-12-29] MEDS: ACETAMINOPHEN TAB 650MG DOSE (2X325MG) PO PRN (09:46)
[2021-12-29] MEDS ORDERED: METO1TAB32 PO (13:25)
== END 2021-12-29 17:32 | disposition home or self-care (01) | DRG 244 ==
LOC: M ICU 20:30
PROVIDERS: ADMIT Internal Medicine; ATTEND Internal Medicine Nephrology
PROC: 02H63JZ Insertion of Pacemaker Lead into Right Atrium, Percutaneous Approach (ICD-10-PCS; 2021-12-28)
PROC: 02HK3JZ Insertion of Pacemaker Lead into Right Ventricle, Percutaneous Approach (ICD-10-PCS; 2021-12-28)
PROC: 0JH606Z Insertion of Pacemaker, Dual Chamber into Chest Subcutaneous Tissue and Fascia, Open Approach (ICD-10-PCS; principal; 2021-12-28 13:45)
DX: I49.5 Sick sinus syndrome (principal); I48.0 Paroxysmal atrial fibrillation; I10 Essential (primary) hypertension; E78.5 Hyperlipidemia, unspecified; I73.9 Peripheral vascular disease, unspecified; J30.81 Allergic rhinitis due to animal (cat) (dog) hair and dander; I25.10 Atherosclerotic heart disease of native coronary artery without angina pectoris; Z86.73 Personal history of transient ischemic attack (TIA), and cerebral infarction without residual deficits; Z95.1 Presence of aortocoronary bypass graft; Z87.891 Personal history of nicotine dependence; Z79.01 Long term (current) use of anticoagulants; Z79.82 Long term (current) use of aspirin; Z79.899 Other long term (current) drug therapy; Z88.0 Allergy status to penicillin; Z95.820 Peripheral vascular angioplasty status with implants and grafts

== ENCOUNTER 2022-02-22 13:47 | Observation (INO) | payer MEDICARE ==
[2022-02-21 21:16] VITALS: BP 106/53
[~2022-02-22] VITALS: Ht 167.6 cm; Wt 60.9 kg
[~2022-02-22 13:47] MED LIST changes: +ATOR1TAB19 PO; +FAMO20TA PO
[2022-02-22] MEDS ORDERED: NS 1,000 ML IV ONE (15:45)
[2022-02-22] MEDS ORDERED: ACETAMINOPHEN TAB 650MG DOSE (2X325MG) PO ONE (15:45)
[2022-02-22 16:27] LABS: BASO % 0.3 % (0.0-1.0); HEMATOCRIT 42.9 % (42.0-52.0); HEMOGLOBIN 13.7 g/dl (13.5-17.5); LYMPH % 16.4 % (24.0-44.0); MEAN CORPUSCULAR HEMOGLOBIN 29.1 pg (27.0-33.0); MEAN CORPUSCULAR HGB CONC 31.9 g/dl (32.0-36.5); MEAN CORPUSCULAR VOLUME 91.3 fl (80.0-96.0); MONO # 0.4 10^3/uL (0.0-0.8); NEUTROPHILS # 4.8 10^3/uL (1.5-8.5); PLATELET COUNT, AUTOMATED 195 10^3/uL (150-450); WHITE BLOOD COUNT 6.3 10^3/uL (4.0-10.0)
[2022-02-22 16:44] LABS: INR 0.93; PROTHROMBIN TIME 12.9 SECONDS (12.7-14.5)
[2022-02-22 16:55] LABS: CK-MB VALUE MASS < 1.0 NG/ML (<3.6); CPK CREATINE PHOSPHOKINASE 32 U/L (39-308); MB/CK RELATIVE INDEX 3.12 (< OR =4)
[2022-02-22 17:00] LABS: ALBUMIN 3.5 GM/DL (3.2-5.2); BILIRUBIN,DIRECT 0.2 MG/DL (0.0-0.2); BILIRUBIN,TOTAL 0.9 MG/DL (0.2-1.0); THYROID STIMULATING HORMONE 0.608 uIU/ML (0.358-3.740); TOTAL PROTEIN 7.1 GM/DL (6.4-8.2)
[2022-02-22] MEDS: cefTRIAXone SOD 1 GM in D5W MINI-BAG PLUS 50 ML IV SCH (19:00)
[2022-02-22] MEDS ORDERED: FAMOTIDINE 20 MG TAB PO PRN (19:00)
[2022-02-22] MEDS ORDERED: METO1TAB32 PO (19:02)
[2022-02-22] MEDS ORDERED: HOME MED LIST COMPLETE! XX SCH (19:05)
[2022-02-22 19:11] LABS: ERYTHROCYTE SEDIMENTATION RATE 19 mm/hr (0-20)
[2022-02-22] MEDS: DOXYCYCLINE HYCLATE 100 MG in D5W MINI-BAG PLUS 100 ML IV SCH (19:11)
[2022-02-22] MEDS: NS 1,000 ML IV SCH (19:11)
[2022-02-23] MEDS: NS 1,000 ML IV SCH ×2 (04:16→17:01)
[2022-02-23] MEDS: ACETAMINOPHEN TAB 650MG DOSE (2X325MG) PO PRN ×2 (04:16→20:23)
[2022-02-23 04:54] VITALS: BP 84/42
[2022-02-23 06:40] VITALS: BP 92/47
[2022-02-23 07:08] LABS: HEMATOCRIT 35.3 % (42.0-52.0); MEAN CORPUSCULAR HEMOGLOBIN 29.1 pg (27.0-33.0); MEAN CORPUSCULAR HGB CONC 31.4 g/dl (32.0-36.5); MEAN CORPUSCULAR VOLUME 92.4 fl (80.0-96.0); PLATELET COUNT, AUTOMATED 151 10^3/uL (150-450); RED BLOOD COUNT 3.82 10^6/uL (4.30-6.10); WHITE BLOOD COUNT 4.1 10^3/uL (4.0-10.0)
[2022-02-23 07:18] LABS: HEMOGLOBIN 11.1 g/dl (13.5-17.5)
[2022-02-23 07:26] LABS: BLOOD UREA NITROGEN 22 MG/DL (7-18); CALCIUM LEVEL 8.1 MG/DL (8.8-10.2); CARBON DIOXIDE LEVEL 26 MEQ/L (21-32); CHLORIDE LEVEL 111 MEQ/L (98-107); CREATININE FOR GFR 0.98 MG/DL (0.70-1.30); GLOMERULAR FILTRATION RATE > 60.0 (>35); GLUCOSE, FASTING 93 MG/DL (70-100); POTASSIUM SERUM 4.6 MEQ/L (3.5-5.1); SODIUM LEVEL 139 MEQ/L (136-145)
[2022-02-23] MEDS: DOXYCYCLINE HYCLATE 100 MG in D5W MINI-BAG PLUS 100 ML IV SCH ×2 (08:01→20:18)
[2022-02-23] MEDS: ASPIRIN 81MG ENTERIC TABLET PO SCH (08:01)
[2022-02-23] MEDS: ATORVASTATIN 10 MG TAB PO SCH (08:02)
[2022-02-23] MEDS: VITAMIN D 1,000 INTERNATIONAL UNITS TABLET PO SCH (08:02)
[2022-02-23] MEDS: MULTIVITAMINS/MINERALS THERAP 1 TAB PO SCH (08:02)
[2022-02-23] MEDS: APIXABAN 5 MG TAB (ELIQUIS) PO SCH (08:02)
[2022-02-23] MEDS: METOPROLOL SUCC *XL* 25MG TAB (TopROL *XL*) PO SCH (08:05)
[2022-02-23] MEDS ORDERED: SENNA 8.6 MG TAB (SENOKOT) PO SCH (09:00)
[2022-02-23] MEDS ORDERED: SENNA 8.6 MG TAB (SENOKOT) PO PRN (09:40)
[2022-02-23] MEDS: LACTOBACILLUS ACIDOPHILUS CAP (BACID) PO SCH ×2 (12:33→17:01)
[2022-02-23 14:00] VITALS: BP 94/58
[2022-02-23] MEDS: cefTRIAXone SOD 1 GM in D5W MINI-BAG PLUS 50 ML IV SCH (18:09)
[2022-02-23 22:00] VITALS: BP 98/56
[2022-02-23] MEDS ORDERED: RAMELTEON 8 MG TAB (ROZEREM) PO PRN (23:00)
[2022-02-24] MEDS: NS 1,000 ML IV SCH (03:42)
[2022-02-24 06:00] VITALS: BP 100/56
[2022-02-24 06:45] LABS: HEMATOCRIT 34.6 % (42.0-52.0); HEMOGLOBIN 11.2 g/dl (13.5-17.5); MEAN CORPUSCULAR HEMOGLOBIN 29.6 pg (27.0-33.0); MEAN CORPUSCULAR HGB CONC 32.4 g/dl (32.0-36.5); MEAN CORPUSCULAR VOLUME 91.3 fl (80.0-96.0); PLATELET COUNT, AUTOMATED 135 10^3/uL (150-450); RED BLOOD COUNT 3.79 10^6/uL (4.30-6.10); WHITE BLOOD COUNT 4.7 10^3/uL (4.0-10.0)
[2022-02-24 07:07] LABS: BLOOD UREA NITROGEN 16 MG/DL (7-18); CALCIUM LEVEL 7.9 MG/DL (8.8-10.2); CARBON DIOXIDE LEVEL 21 MEQ/L (21-32); CHLORIDE LEVEL 117 MEQ/L (98-107); CREATININE FOR GFR 0.69 MG/DL (0.70-1.30); GLOMERULAR FILTRATION RATE > 60.0 (>35); GLUCOSE, FASTING 91 MG/DL (70-100); POTASSIUM SERUM 4.1 MEQ/L (3.5-5.1); SODIUM LEVEL 144 MEQ/L (136-145)
[2022-02-24] MEDS: DOXYCYCLINE HYCLATE 100 MG in D5W MINI-BAG PLUS 100 ML IV SCH (07:47)
[2022-02-24] MEDS: VITAMIN D 1,000 INTERNATIONAL UNITS TABLET PO SCH (07:47)
[2022-02-24] MEDS: MULTIVITAMINS/MINERALS THERAP 1 TAB PO SCH (07:47)
[2022-02-24] MEDS: ASPIRIN 81MG ENTERIC TABLET PO SCH (07:47)
[2022-02-24] MEDS: ATORVASTATIN 10 MG TAB PO SCH (07:47)
[2022-02-24] MEDS: APIXABAN 5 MG TAB (ELIQUIS) PO SCH (07:47)
[2022-02-24] MEDS: LACTOBACILLUS ACIDOPHILUS CAP (BACID) PO SCH (07:47)
[2022-02-24 07:48] VITALS: BP 129/80
[2022-02-24] MEDS: METOPROLOL SUCC *XL* 25MG TAB (TopROL *XL*) PO SCH (07:48)
[2022-02-24] MEDS ORDERED: DOXY-350 PO (09:06)
[2022-02-24] MEDS ORDERED: RISATAB3 PO (09:06)
== END 2022-02-24 11:49 | disposition home or self-care (01) ==
LOC: M ED 13:47 → M ED INP 18:18 → INTOOBSV 18:18 → M MSPAV 20:37
PROVIDERS: ADMIT Internal Medicine; ATTEND Internal Medicine
DX: R50.9 Fever, unspecified (principal); I48.0 Paroxysmal atrial fibrillation; I49.5 Sick sinus syndrome; Z95.0 Presence of cardiac pacemaker; K59.00 Constipation, unspecified; R07.9 Chest pain, unspecified; I11.9 Hypertensive heart disease without heart failure; E78.5 Hyperlipidemia, unspecified; I25.10 Atherosclerotic heart disease of native coronary artery without angina pectoris; E55.9 Vitamin D deficiency, unspecified; K21.9 Gastro-esophageal reflux disease without esophagitis; I73.9 Peripheral vascular disease, unspecified; R53.83 Other fatigue; R41.0 Disorientation, unspecified; Z86.73 Personal history of transient ischemic attack (TIA), and cerebral infarction without residual deficits; Z79.899 Other long term (current) drug therapy; Z79.01 Long term (current) use of anticoagulants; Z79.82 Long term (current) use of aspirin; Z79.2 Long term (current) use of antibiotics; Z88.0 Allergy status to penicillin; J30.81 Allergic rhinitis due to animal (cat) (dog) hair and dander; Z87.891 Personal history of nicotine dependence; Z95.1 Presence of aortocoronary bypass graft
CPT/HCPCS: 36415; 71045; 74176; 80047; 80048; 80076; 80503; 81001; 82140; 82550; 82553; 83605; 83880; 84443; 84484; 85025; 85027; 85610; 85652; 86140; 86618; 87040; 87486; 87581; 87633; 87798; 93005; 93306; 96361; 96365; 96366; 96367; 96368; 96376; 99284; G0378; J0696